=== PATIENT | male | born 1975 | race Caucasian/White ===

== ENCOUNTER 2016-11-14 20:49 | Emergency (ER) | payer MEDICAID ==
[~2016-11-14] VITALS: Ht 157.5 cm; Wt 63.0 kg
[2016-11-14 20:53] VITALS: BP 160/94
== END 2016-11-15 00:15 | disposition left against medical advice (07) ==
LOC: ER 21:14
DX: Z53.21 Procedure and treatment not carried out due to patient leaving prior to being seen by health care provider (principal)

== ENCOUNTER 2018-12-29 16:14 | Emergency (ER) | payer MEDICAID ==
[~2018-12-29] VITALS: Ht 175.3 cm; Wt 67.0 kg
[2018-12-29 17:48] VITALS: BP 112/68
== END 2018-12-29 17:40 | disposition home or self-care (01) ==
LOC: ER 16:14
DX: Z46.89 Encounter for fitting and adjustment of other specified devices (principal); Z88.5 Allergy status to narcotic agent; Z98.890 Other specified postprocedural states; F12.10 Cannabis abuse, uncomplicated; F16.10 Hallucinogen abuse, uncomplicated
CPT/HCPCS: 99284

== ENCOUNTER 2019-03-23 18:05 | Emergency (ER) | payer MEDICAID ==
[~2019-03-23] VITALS: Ht 167.6 cm; Wt 60.0 kg
[2019-03-23 18:06] VITALS: BP 125/80
== END 2019-03-23 19:05 | disposition left against medical advice (07) ==
LOC: ER 18:05
DX: F10.129 Alcohol abuse with intoxication, unspecified (principal); Y90.0 Blood alcohol level of less than 20 mg/100 ml
CPT/HCPCS: 99283

== ENCOUNTER 2020-01-22 18:23 | Emergency (ER) | payer MEDICAID ==
[~2020-01-22] VITALS: Ht 162.6 cm; Wt 66.0 kg
[2020-01-22 20:24] VITALS: BP 121/82
== END 2020-01-22 20:42 | disposition home or self-care (01) ==
LOC: ER 18:23
DX: K94.03 Colostomy malfunction (principal); G89.29 Other chronic pain; M54.9 Dorsalgia, unspecified; F12.10 Cannabis abuse, uncomplicated; F16.10 Hallucinogen abuse, uncomplicated; Z88.6 Allergy status to analgesic agent
CPT/HCPCS: 99283

== ENCOUNTER 2020-01-24 11:24 | Emergency (ER) | payer MEDICAID ==
[~2020-01-24] VITALS: Ht 162.6 cm; Wt 70.0 kg
[2020-01-24] MEDS ORDERED: SODIUM CHLORIDE 0.9% 1,000 ML IV ONE (11:45)
[2020-01-24 12:08] LABS: BASOPHILS % 1.2 % (0.0-2.0); EOSINOPHILS % 2.2 % (0.0-5.0); HEMATOCRIT. 38.2 % (42.0-52.0); HEMOGLOBIN. 12.9 g/dL (14.0-18.0); LYMPHOCYTES % 13.5 % (20.0-50.0); MEAN CORPUSCULAR HEMOGLOBIN 31.9 pg (28.0-32.0); MEAN CORPUSCULAR VOLUME 94.2 fL (80.0-94.0); MEAN PLATELET VOLUME 8.3 fl (7.4-10.4); MONOCYTES % 8.4 % (2.0-8.0); NEUTROPHILS % 74.7 % (40.0-76.0); PLATELET 253 x1000/uL (130-400); RED BLOOD CELL COUNT 4.06 mill/uL (4.7-6.1); RED CELL DISTRIBUTION WIDTH 13.4 % (11.6-14.6)
[2020-01-24 12:10] LABS: CHLORIDE 110 mEq/L (98-107)
[2020-01-24 12:15] LABS: ETHANOL BLOOD 135 mg/dL
[2020-01-24 12:35] LABS: PROTHROMBIN TIME 10.3 sec (9.6-11.0)
[2020-01-24 14:20] LABS: *AMPHETAMINES SCREEN URINE NEGATIVE (NEGATIVE); *BARBITURATES SCREEN URINE NEGATIVE (NEGATIVE); *BENZODIAZEPINES SCREEN URINE NEGATIVE (NEGATIVE); *COCAINE SCREEN URINE NEGATIVE (NEGATIVE)
[2020-01-24 14:21] LABS: CANNABINOID URINE SCREEN PRESUMTIVE POSITIVE (NEGATIVE); METHADONE URINE SCREEN NEGATIVE (NEGATIVE); OPIATES URINE SCREEN NEGATIVE (NEGATIVE); PHENCYCLIDINE URINE SCREEN PRESUMTIVE POSITIVE (NEGATIVE)
[2020-01-24] MEDS ORDERED: POTASSIUM CHLORIDE 20MEQ TABLET SR PO ONE (14:45)
[2020-01-24 14:57] LABS: CLARITY URINE CLEAR (CLEAR); COLOR URINE YELLOW (YELLOW); KETONES URINE NEGATIVE (NEGATIVE); LEUKOCYTE ESTERASE URINE NEGATIVE (NEGATIVE); NITRITE URINE NEGATIVE (NEGATIVE); OCCULT BLOOD URINE NEGATIVE (NEGATIVE); PH URINE 5.5 (4.5-8.0); PROTEIN URINE NEGATIVE (NEGATIVE); SPECIFIC GRAVITY URINE 1.009 (1.005-1.030); UROBILINOGEN URINE 0.2 E.U./dL (0.2-1.0)
[2020-01-24 17:00] VITALS: BP 111/67
== END 2020-01-24 17:12 | disposition home or self-care (01) ==
LOC: ER 11:24
DX: F10.129 Alcohol abuse with intoxication, unspecified (principal); F19.10 Other psychoactive substance abuse, uncomplicated; Y90.6 Blood alcohol level of 120-199 mg/100 ml; F12.90 Cannabis use, unspecified, uncomplicated
CPT/HCPCS: 36415; 71045; 80053; 80305; 80320; 81003; 83690; 85025; 85610; 96360; 96361; 99285; J7030; G0480

== ENCOUNTER 2020-03-14 16:16 | Emergency (ER) | payer MEDICAID ==
[~2020-03-14] VITALS: Ht 157.5 cm; Wt 58.0 kg
[2020-03-14 19:52] LABS: BASOPHILS % 1.1 % (0.0-2.0); EOSINOPHILS % 1.5 % (0.0-5.0); HEMATOCRIT. 37.8 % (42.0-52.0); HEMOGLOBIN. 12.7 g/dL (14.0-18.0); LYMPHOCYTES % 10.7 % (20.0-50.0); MEAN CORPUSCULAR HEMOGLOBIN 31.3 pg (28.0-32.0); MEAN CORPUSCULAR VOLUME 93.3 fL (80.0-94.0); MEAN PLATELET VOLUME 7.9 fl (7.4-10.4); MONOCYTES % 4.5 % (2.0-8.0); NEUTROPHILS % 82.2 % (40.0-76.0); PLATELET 262 x1000/uL (130-400); RED BLOOD CELL COUNT 4.05 mill/uL (4.7-6.1); RED CELL DISTRIBUTION WIDTH 13.2 % (11.6-14.6)
[2020-03-14 19:56] LABS: CHLORIDE 109 mEq/L (98-107)
[2020-03-14 20:03] LABS: ETHANOL BLOOD < 10 mg/dL
[2020-03-15] MEDS: KETOROLAC 30MG/ML VIAL IV STA (05:14)
[2020-03-15] MEDS: ONDANSETRON HCL 4MG/2ML INJ IV ONE (05:15)
[2020-03-15] MEDS: SODIUM CHLORIDE 0.9% 1,000 ML IV ONE (05:15)
[2020-03-15 05:23] VITALS: BP 125/74
== END 2020-03-15 05:27 | disposition home or self-care (01) ==
LOC: ER 16:16
DX: R10.0 Acute abdomen (principal); R41.82 Altered mental status, unspecified; D64.9 Anemia, unspecified
CPT/HCPCS: 36415; 74176; 80053; 80320; 83690; 85025; 93005; 99285; J7030; G0480